=== PATIENT | male | born 1995 | race African-American/Black ===

== ENCOUNTER 2016-12-06 07:17 | Inpatient (IN) | payer MEDICAID ==
[~2016-12-06] VITALS: Ht 180.3 cm; Wt 76.7 kg
[2016-12-06] MEDS ORDERED: OLAN2.5T3 PO (07:35)
[2016-12-06 08:00] LABS: BASOPHILS % (AUTO) 0.7 % (0.0-2.0); EOSINOPHILS % (AUTO) 2.4 % (1.0-6.0); HEMOGLOBIN 14.5 g/dL (13.5-17.5); LYMPHOCYTES # (AUTO) 1.7 K/uL (1.0-4.8); LYMPHOCYTES % (AUTO) 40.8 % (22.0-44.0); MEAN CORPUSCULAR HGB CONC 33.7 G/dL (31.0-37.0); MEAN CORPUSCULAR VOLUME 95 fL (80-100); MONOCYTES # (AUTO) 0.3 K/uL (0.1-1.0); MONOCYTES % (AUTO) 7.3 % (2.0-9.0); NEUTROPHILS % (AUTO) 48.8 % (40.0-70.0); PLATELET COUNT (AUTO) 256 K/uL (150-450); RED BLOOD CELL COUNT(AUTO) 4.53 MIL/uL (4.50-5.90); RED CELL DISTRIBUTION WIDTH 12.6 % (11.5-14.5); WHITE BLOOD COUNT (AUTO) 4.2 K/uL (4.5-11.0)
[2016-12-06 08:08] LABS: ANION GAP 10 mmol/L (8-16); CALCIUM, TOTAL 8.9 mg/dL (8.8-10.5); CARBON DIOXIDE 29 mmol/L (22-29); CHLORIDE 103 mmol/L (98-107); CREATININE 0.84 mg/dL (0.60-1.30); GLOMERULAR FILTR. RATE CALC > 60 mL/min (>60); POTASSIUM 4.1 mmol/L (3.5-5.1); SODIUM SERUM 142 mmol/L (136-145); UREA NITROGEN, BLOOD 15 mg/dL (7-18)
[2016-12-06 08:14] LABS: ALANINE AMINOTRANSFERASE 47 U/L (12-78); ALBUMIN 3.8 g/dL (3.4-5.0); ASPARTATE AMINOTRANSFERASE 16 U/L (15-37); BILIRUBIN,TOTAL 0.2 mg/dL (0.1-1.0); TOTAL PROTEIN, SERUM 7.5 g/dL (6.4-8.2)
[2016-12-06] MEDS ORDERED: LORazepam 2 MG TABLET PO ONE (08:30)
[2016-12-06] MEDS ORDERED: HALOPERIDOL 5 MG TABLET PO ONE (08:30)
[2016-12-06] MEDS ORDERED: ZOLPIDEM TARTRATE 10 MG TABLET PO PRN (12:15)
[2016-12-06] MEDS ORDERED: LORazepam 2 MG TABLET PO PRN (12:15)
[2016-12-06] MEDS ORDERED: HALOPERIDOL 5 MG TABLET PO PRN (12:15)
[2016-12-06 12:31] VITALS: BP 132/82
[2016-12-06] MEDS ORDERED: PNEUMOCOCCAL VACCINE POLYVALENT 0.5 ML VIAL [PPSV23] IM ONE (14:15)
[2016-12-06] MEDS ORDERED: INFLUENZA VIRUS VACCINE QVS 2016-17 (3YR+)/PF 60 MCG/0.5 ML SYRINGE IM ONE (14:15)
[2016-12-06 16:00] VITALS: BP 127/74
[2016-12-06] MEDS: OLANZapine 10 MG TABLET PO SCH (20:45)
[2016-12-07 06:35] VITALS: BP 118/78
[2016-12-07 08:12] VITALS: BP 119/70
[2016-12-07 16:00] VITALS: BP 130/82
[2016-12-07] MEDS: OLANZapine 10 MG TABLET PO SCH (20:11)
[2016-12-08 06:52] VITALS: BP 104/70
[2016-12-08 08:36] VITALS: BP 126/79
[2016-12-08 16:13] VITALS: BP 117/66
[2016-12-08] MEDS: OLANZapine 10 MG TABLET PO SCH (20:31)
[2016-12-09 05:44] VITALS: BP 102/64
[2016-12-09 09:04] VITALS: BP 115/68
[2016-12-09] MEDS ORDERED: OLAN10TA3 PO (11:12)
== END 2016-12-09 13:20 | disposition home or self-care (01) | DRG 750 ==
LOC: EMS 07:20 → B3A 10:56 → B2S 12-08 10:29
PROVIDERS: ADMIT Psychiatry & Neurology Psychiatry; ATTEND Psychiatry & Neurology Psychiatry
DX: F25.9 Schizoaffective disorder, unspecified (principal); F32.9 Major depressive disorder, single episode, unspecified; F20.0 Paranoid schizophrenia; F12.90 Cannabis use, unspecified, uncomplicated; G47.00 Insomnia, unspecified; F17.210 Nicotine dependence, cigarettes, uncomplicated; Z79.899 Other long term (current) drug therapy; Z28.21 Immunization not carried out because of patient refusal; Z71.6 Tobacco abuse counseling
CPT/HCPCS: 99285; G0480